=== PATIENT | female | born 1950 ===

== ENCOUNTER 2017-10-29 09:18 | Emergency (ER) | payer MEDICARE ==
--- NOTE | 2017-10-29 10:29 | ED PDOC ---
Upper Extremity Pain/Injury Time Seen by Provider: 10/29/17 09:32 Chief Complaint (Nursing): Upper Extremity Problem/Injury Chief Complaint (Provider): left arm pain History Per: Patient, Family, Remote Advisor History/Exam Limitations: no limitations Current Symptoms Are (Timing): Still Present Severity: Moderate Exacerbating Factor(s): Strenuous Use Of Affected Area, Movement Additional Complaint(s): 67yo female presents c/o left arm pain starting at shoulder radiating down left arm to hand, worse with movement, does admit to overuse at work with L arm. Denies chest pain, SOB, headache or numbness/weakness of arms or legs. Seen at the [facility] 2 days ago for same complaint and Rx tramadol with minimal relief. Denies trauma or falls. Past Medical History Reviewed: Historical Data, Nursing Documentation, Vital Signs Vital Signs: Last Vital Signs Temp 97 F L 10/29/17 09:32 Pulse 70 10/29/17 09:32 Resp 16 10/29/17 09:32 BP 129/77 10/29/17 09:32 Pulse Ox 99 10/29/17 09:32 - Medical History PMH: Diabetes, HTN, Hypercholesterolemia, Hyperlipidemia, Kidney Stones, Chronic Kidney Disease - Family History Family History: States: Unknown Family Hx - Living Arrangements Living Arrangements: With Family - Social History Current smoker - smoking cessation education provided: No - Immunization History Hx Tetanus Toxoid Vaccination: Yes Hx Influenza Vaccination: Yes Hx Pneumococcal Vaccination: Yes - Home Medications Home Medications: Ambulatory Orders Medication Instructions Recorded Aspirin [Aspirin Chewable] 81 mg PO DAILY #30 chew 03/07/17 Atorvastatin 40 mg PO HS #30 03/07/17 Lisinopril 10 mg PO DAILY #30 03/07/17 Cetirizine HCl 1 tab PO DAILY 06/25/17 Liraglutide [Victoza 3-Theo] 1 unit SQ DAILY 06/25/17 Sitagliptin Phos/Metformin HCl 1 tab PO DAILY 06/25/17 [Janumet 50-1,000 mg Tablet] Ibuprofen [Motrin] 600 mg PO TID #15 tab 10/27/17 traMADol [Ultram] 25 mg PO HS #5 tab 10/27/17 Naproxen [Naprosyn] 500 mg PO BID PRN #14 tablet 10/29/17 - Allergies Allergies/Adverse Reactions: Allergies Allergy/AdvReac Type Severity Reaction Status Date / Time No Known Allergies Allergy Verified 10/27/17 07:09 Review of Systems Constitutional: Negative for: Fever ENT: Negative for: Nose Pain, Nose Discharge, Throat Pain Cardiovascular: Negative for: Chest Pain, Palpitations Respiratory: Negative for: Cough, Shortness of Breath Gastrointestinal: Negative for: Abdominal Pain Genitourinary Female: Negative for: Dysuria Musculoskeletal: Positive for: Shoulder Pain, Arm Pain, Hand Pain. Negative for: Neck Pain, Back Pain, Leg Pain, Foot Pain Skin: Negative for: Rash Neurological: Positive for: Dizziness. Negative for: Weakness, Altered Mental Status, Headache Psych: Negative for: Depression Physical Exam - Reviewed Nursing Documentation Reviewed: Yes Vital Signs Reviewed: Yes - Physical Exam Appears: Positive for: Well, Non-toxic, No Acute Distress Head Exam: Positive for: ATRAUMATIC, NORMAL INSPECTION, NORMOCEPHALIC Skin: Positive for: Normal Color, Warm, DRY Eye Exam: Positive for: EOMI, Normal appearance, PERRL ENT: Positive for: Normal ENT Inspection Neck: Positive for: Normal, Painless ROM Cardiovascular/Chest: Positive for: Regular Rate, Rhythm Respiratory: Positive for: CNT, Normal Breath Sounds Gastrointestinal/Abdominal: Positive for: Soft. Negative for: Tenderness Back: Positive for: Normal Inspection Extremity: Positive for: Normal ROM, Tenderness (L shoulder AC joint; L tricep belly, L humeral mild tenderness, normal pulses and ROM hand/wrist). Negative for: Pedal Edema, Deformity, Swelling Neurologic/Psych: Positive for: Alert, Oriented - Laboratory Results Result Diagrams: 10/29/17 10:19 10/29/17 10:19 - ECG ECG: Positive for: Interpreted By Me ECG Rhythm: Positive for: Normal ST Segment, Sinus Rhythm, Nonspecific Changes Rate: 67 O2 Sat by Pulse Oximetry: 99 Pulse Ox Interpretation: Normal - Radiology X-Ray: Interpreted by [place] - Other Rad XR L shoulder/humerus X-Ray: Interpreted by [facility] X-Ray Interpretation: neg for fracture or gross abnormality Medical Decision Making Medical Decision Making: chart from [facility] reviewed obtain EKG, labs, xray given recurrent visit toradol and tylenol ordered for pain labs reviewed clinically unremarkable imaging L arm and chest reviewed, radiology reports reviewed pain worse w movement, sling placed and followup PMD 2-3 days. Rx analgesics. Indications for return ER discussed. Disposition - Clinical Impression Clinical Impression: Arm pain, Shoulder pain - Patient ED Disposition Is Patient to be Admitted: No Counseled Patient/Family Regarding: Studies Performed, Diagnosis, Need For Followup - Disposition Referrals: Lukas Maynard MD [Staff Provider] - Disposition: Routine/Home Disposition Time: 12:30 Condition: STABLE Additional Instructions: Use naprosyn OR motrin (prior prescribed by the [facility]) for pain as directed. Do not take both. Use tramadol for breakthrough pain. Return to ER for any worse or symptoms, followup with outpatient doctor/clinic for further testing and treatment. Use Naprosyn o Motrin (previo prescrito por [facility]) para el dolor segn lo indicado. No tome los dos. Utilice tramadol para el dolor irruptivo. Retornar a er para cualquier peor o sntoma, seguimiento con el doctor/clnica ambulatorio para ms pruebas y tratamiento. Prescriptions: Naproxen [Naprosyn] 500 mg PO BID PRN #14 tablet PRN Reason: Pain, Moderate (4-7) Instructions: Muscle and Bone Pain (DC), Shoulder Sprain (DC) Forms: [employer] ([place]) Print Language: TAIWANESE
--- NOTE | 2017-10-29 10:35 | RAD ---
HISTORY: Chest pain COMPARISON: No prior. TECHNIQUE: Chest PA and lateral FINDINGS: LINES AND TUBES: None. LUNG AND PLEURA: The lungs are well inflated and clear. No pleural effusion or pneumothorax. HEART AND MEDIASTINUM: The heart is not enlarged. The hilar and mediastinal contours are within normal limits. SKELETAL STRUCTURES: The bony structures are within normal limits for the patient's age. VISUALIZED UPPER ABDOMEN: Normal. OTHER FINDINGS: None. IMPRESSION: No active pulmonary disease.
[2017-10-29 10:36] LABS: BASO # 0.1 K/uL (0.0-0.2); BASO % 1.1 % (0.0-2.0); EOS # 0.1 K/uL (0.0-0.7); EOS % 2.5 % (0.0-4.0); HEMOGLOBIN 11.7 g/dL (12.0-16.0); LYMPH # 1.5 K/uL (1.0-4.3); LYMPH % 28.3 % (20.0-40.0); MEAN CELL VOLUME 89.4 fl (81.0-99.0); MEAN CORPUSCULAR HEMOGLOBIN 30.5 pg (27.0-31.0); MEAN CORPUSCULAR HGB CONC 34.1 g/dL (33.0-37.0); MEAN PLATELET VOLUME 10.8 fl (7.2-11.7); MONO # 0.3 K/uL (0.0-0.8); MONO % 6.8 % (0.0-10.0); NEUT # 3.2 K/uL (1.8-7.0); NEUT % 61.3 % (50.0-75.0); NRBC % 0.2 % (0.0-0.0); RBC 3.85 Mil/uL (3.80-5.20); WHITE BLOOD COUNT 5.1 K/uL (4.8-10.8)
--- NOTE | 2017-10-29 10:37 | RAD ---
Date of service: 10/29/2017 PROCEDURE: Radiographs of the Left Shoulder HISTORY: Left shoulder and arm pain COMPARISON: No prior. FINDINGS: BONES: Bone alignment and mineralization are normal. There is no acute displaced fracture or bone destruction. JOINTS: Normal. Glenohumeral and acromioclavicular joints preserved. No osteoarthritis. SOFT TISSUES: Normal. OTHER FINDINGS: None. IMPRESSION: No acute fracture or dislocation.
--- NOTE | 2017-10-29 10:38 | RAD ---
PROCEDURE: Radiographs of the left humerus. HISTORY: L arm pain COMPARISON: None. FINDINGS: BONES: Bone alignment and mineralization are normal. There is no acute displaced fracture or bone destruction. SOFT TISSUES: Normal. OTHER FINDINGS: None. IMPRESSION: No acute fracture.
[2017-10-29 10:42] LABS: ALB/GLOB RATIO 1.1 (1.0-2.1); ALBUMIN 3.4 g/dL (3.5-5.0); BLOOD UREA NITROGEN 12 mg/dl (7-17); CALCIUM 9.1 mg/dL (8.4-10.2); GFR NON-AFRICAN AMERICAN > 60
[2017-10-29 10:43] LABS: ALT/SGPT 24 U/L (9-52); AST/SGOT 28 U/L (14-36)
[2017-10-29 10:53] LABS: B-TYPE NATRIURETIC PEPTIDE 159 pg/ml (0-900)
[2017-10-29 14:37] VITALS: BP 140/65; RESP 18; TEMP 98.6
--- NOTE | 2017-10-29 22:54 | CARD ---
APPROVED REPORT Date of service: 10/29/2017 EKG Measurement Heart [id number] <Conclusion> Normal sinus rhythm Normal ECG
[2017-11-11 14:41] VITALS: PULSE 67; O2SAT 99
== END 2017-10-29 14:36 | disposition home or self-care (01) ==
LOC: H.ER 09:18
DX: M79.602 Pain in left arm (principal); M25.512 Pain in left shoulder; E11.9 Type 2 diabetes mellitus without complications; I10 Essential (primary) hypertension; I12.9 Hypertensive chronic kidney disease with stage 1 through stage 4 chronic kidney disease, or unspecified chronic kidney disease; Z87.442 Personal history of urinary calculi
CPT/HCPCS: 71046; 73020; 73060; 80053; 82550; 83880; 84484; 85025; 93005; 96374; 96375; 99285; J1885; J2270